=== PATIENT | male | born 1965 | race Caucasian/White ===

== ENCOUNTER 2018-03-16 07:34 | Outpatient (CLI) | payer MEDICAID ==
[2018-03-16] MEDS ORDERED: MIDAZOLAM 2 MG/2 ML VIAL IVP PRN ×2 (08:11→08:40)
[2018-03-16] MEDS ORDERED: fentaNYL 100 MCG/2 ML INJ IVP PRN ×2 (08:11→08:40)
[2018-03-16] MEDS ORDERED: MEPERIDINE 25 MG/ML SYR IVP PRN ×2 (08:11→08:40)
[2018-03-16] MEDS ORDERED: FLUMAZENIL 0.5 MG/5 ML MDV IVP PRN ×2 (08:11→08:40)
[2018-03-16] MEDS ORDERED: NALOXONE HCL 0.4 MG/ML INJ IVP PRN ×2 (08:11→08:40)
[2018-03-16] MEDS ORDERED: ONDANSETRON DISINTEGRATING 4 MG TAB PO ONE (08:11)
[2018-03-16] MEDS ORDERED: ONDANSETRON 4 MG/2 ML VIAL IVP ONE (08:11)
[2018-03-16] MEDS ORDERED: NS 1,000 ML IV SCH (08:15)
[2018-03-16] MEDS ORDERED: HYDROmorphONE/DILAUDID 2 MG/ML INJ IVP ONE (08:45)
[2018-03-16] MEDS ORDERED: MIDAZOLAM 2 MG/2 ML VIAL ONE (09:30)
[2018-03-16 10:22] VITALS: BP 127/81
== END 2018-03-16 10:55 | disposition home or self-care (01) ==
LOC: FIMAGING 07:34
DX: M50.30 Other cervical disc degeneration, unspecified cervical region (principal); M51.37 Other intervertebral disc degeneration, lumbosacral region; M99.73 Connective tissue and disc stenosis of intervertebral foramina of lumbar region
CPT/HCPCS: J1170; J2250; J2310; J2405; J3010